=== PATIENT | male | born 1975 | race Caucasian/White ===

== ENCOUNTER → 2023-02-19 11:14 | Outpatient (CLI) | payer OTHER, SELFPAY ==
--- NOTE | 2023-02-19 11:17 | DI.RAD.S_ITS ---
PROCEDURE: XR FOOT LT MIN 3V INDICATIONS: Point tenderness at distal head of 1st metatarsal TECHNIQUE: 3 views of the foot were acquired. COMPARISON: [facility], CR, XR TOE LT MIN 2V, 02/19/2023, 11:15. FINDINGS: Bones: No acute fractures or dislocations. Prior fracture of the 5th metatarsal base. This is well corticated. No suspicious bony lesions. Soft tissues: No tibiotalar joint effusion. Achilles tendon appears normal. IMPRESSION: No acute osseous abnormality. Prior fracture of the 5th metatarsal base. Dictated by: Mickey Sorensen M.D. on 02/19/2023 at 12:02 Approved by: Mickey Sorensen M.D. on 02/19/2023 at 12:04
--- NOTE | 2023-02-19 11:17 | DI.RAD.S_ITS ---
PROCEDURE: XR TOE LT MIN 2V INDICATIONS: Point tenderness at distal head of 1st metatarsal TECHNIQUE: 3 views of the left toe(s) acquired. COMPARISON: None. FINDINGS: Bones: No acute fractures or dislocations. Prior fracture of the base of the 5th metatarsal. No suspicious bony lesions. Soft tissues: No suspicious soft tissue densities. IMPRESSION: No acute osseous abnormality. Prior fracture of the base of the 5th metatarsal. Dictated by: Mickey Sorensen M.D. on 02/19/2023 at 12:04 Approved by: Mickey Sorensen M.D. on 02/19/2023 at 12:05
== END ==
PROVIDERS: Referring Provider Physician Assistant; Visit Provider Physician Assistant
DX: M79.675 Pain in left toe(s) (principal); Z87.81 Personal history of (healed) traumatic fracture
CPT/HCPCS: 73630; 73660

== ENCOUNTER → 2023-02-23 09:48 | Outpatient (CLI) | payer OTHER, SELFPAY ==
[2023-02-23 11:56] LABS: Add Manual Diff / Slide Review NO; Basophils Absolute Auto 0 /uL (0-100); Basophils Percent Auto 0.4 % (0-2); Eosinophils Absolute Auto 100 /uL (0-450); Eosinophils Percent Auto 1.4 % (2-4); Hematocrit 44.3 % (41-53); Hemoglobin 15.3 g/dL (13.5-17.5); Lymphocytes Absolute Auto 1400 /uL (1100-4500); Lymphocytes Percent Auto 17.6 % (25-40); Mean Corpuscular HGB Conc 34.5 % (30-36); Mean Corpuscular Volume 89.8 fL (80-100); Monocytes Absolute Auto 600 /uL (0-900); Monocytes Percent Auto 7.4 % (3-14); Neutrophils Absolute Auto 5600 /uL (1500-7000); Neutrophils Percent Auto 73.2 % (50-75); Platelet Count 184 X10^3/uL (150-400); Red Blood Cell Count 4.93 X10^6/uL (4.5-5.9); Red Cell Distribution Width 13.1 % (11.6-14.8); White Blood Cell Count 7.7 X10^3/uL (4.5-11.0)
[2023-02-23 15:16] LABS: Alanine Aminotransferase 48 IU/L (<50); Albumin 4.7 g/dL (3.5-5.0); Alkaline Phosphatase 70 U/L (38-126); Aspartate Aminotransferase 34 IU/L (17-59); BUN Creatinine Ratio 17.6 (6-22); Bilirubin Total 0.9 mg/dL (0.2-1.3); Blood Urea Nitrogen 16 mg/dL (9-20); Calcium 9.5 mg/dL (8.4-10.2); Carbon Dioxide 29 mmol/L (22-32); Chloride 103 mmol/L (98-107); Cholesterol 203 mg/dL (140-199); Estimated Glomerular Filt Rate > 60 mL/min (>60); Globulin 2.4 g/dL (1.7-4.1); Glucose 88 mg/dL (70-100); HDL Cholesterol 45 mg/dL (40-60); HEMOLYSIS < 15 (0-50); LDL Cholesterol Calculated 130 mg/dL (<100); Potassium 4.9 mmol/L (3.4-5.1); Sodium 142 mmol/L (137-145); Total Protein 7.1 g/dL (6.3-8.2); Triglycerides 139 mg/dL (35-150); Uric Acid 5.7 mg/dL (3.5-8.5)
== END ==
PROVIDERS: PCP Family Medicine; Referring Provider Family Medicine; Visit Provider Family Medicine
DX: I10 Essential (primary) hypertension (principal); M79.675 Pain in left toe(s)
CPT/HCPCS: 36415; 80053; 80061; 84550; 85025